=== PATIENT | female | born 1950 | race Two or more races ===

== ENCOUNTER 2016-08-24 16:09 | Emergency (ER) | payer OTHER ==
--- NOTE | 2016-08-24 16:45 | ER Document Report ---
ED Medical Screen (RME) - General Chief Complaint: Sore Throat Stated Complaint: SORE THROAT,VOMITING Time Seen by Provider: 08/24/16 16:27 Mode of Arrival: Wheelchair Information source: Patient, Relative Notes: -year-old female presents to ED for complaint of sore throat earache headache and vomiting for the last 5 days. She states that every time she eats anything she vomits is not able to keep anything down on her stomach today. She states she went to see her PCP and was prescribed amoxicillin and has just been sicker since then. She denies any cough or shortness of breath. No redness to her throat but she does have a lot of nasal drainage. A strep test has been cleaned and sent. I have greeted and performed a rapid initial assessment of this patient. A comprehensive ED assessment and evaluation of the patient, analysis of test results and completion of medical decision making process will be conducted by an additional ED providers. TRAVEL OUTSIDE OF THE [place] IN LAST 30 DAYS: No - Related Data Allergies/Adverse Reactions: No Known Allergies Allergy (Unverified 01/11/14 13:39) Past Medical History - Past Medical History Cardiac Medical History: Reports: Hx Hypertension - SEEING 01/12/14 Denies: Hx Heart Attack Pulmonary Medical History: Denies: Hx Asthma Neurological Medical History: Denies: Hx Cerebrovascular Accident, Hx Seizures Renal/ Medical History: Denies: Hx Peritoneal Dialysis GI Medical History: Denies: Hx Hepatitis, Hx Hiatal Hernia, Hx Ulcer Infectious Medical History: Denies: Hx Hepatitis Past Surgical History: Denies: Hx Mastectomy, Hx Open Heart Surgery, Hx Pacemaker Physical Exam - Vital signs Vitals: Temp Pulse Resp BP Pulse Ox 99.9 F 89 14 129/89 H 99 08/24/16 16:10 08/24/16 16:10 08/24/16 16:10 08/24/16 16:10 08/24/16 16:10 Course - Vital Signs Vital signs: Temp Pulse Resp BP Pulse Ox 99.9 F 89 14 129/89 H 99 08/24/16 16:10 08/24/16 16:10 08/24/16 16:10 08/24/16 16:10 08/24/16 16:10
[2016-08-24] MEDS ORDERED: ONDANSETRON 4 MG TAB.RAPDIS PO ONE (17:10)
[2016-08-24 17:51] LABS: ABSOLUTE LYMPHOCYTES (AUTO) 1.2 10^3/uL (0.5-4.7); ABSOLUTE MONOCYTES (AUTO) 0.7 10^3/uL (0.1-1.4); ABSOLUTE NEUT (AUTO) 5.1 10^3/uL (1.7-8.2); BASOPHILS % (AUTO) 0.1 % (0-2); EOSINOPHILS % (AUTO) 0.1 % (0-6); HEMATOCRIT 43.3 % (36.0-47.0); HEMOGLOBIN 14.2 g/dL (12.0-15.5); HGB HCT DIFFERENCE -0.7; LYMPHOCYTES % (AUTO) 16.7 % (13-45); MEAN CORPUSCULAR HEMOGLOBIN 27.3 pg (27.0-33.4); MEAN CORPUSCULAR HGB CONC 32.7 g/dL (32.0-36.0); MEAN CORPUSCULAR VOLUME 83 fl (80-97); MONOCYTES % (AUTO) 9.7 % (3-13); RED BLOOD COUNT 5.19 10^6/uL (3.72-5.28); RED CELL DISTRIBUTION WIDTH 13.4 % (11.5-14.0); SEGMENTED NEUTROPHILS % (AUTO) 73.4 % (42-78)
[2016-08-24 18:09] LABS: ALANINE AMINOTRANSFERASE 27 U/L (9-52); ALBUMIN 4.9 g/dL (3.5-5.0); ALKALINE PHOSPHATASE 107 U/L (38-126); ANION GAP 15 (5-19); ASPARTATE AMINO TRANSFERASE 20 U/L (14-36); BILIRUBIN,DIRECT 0.3 mg/dL (0.0-0.4); BILIRUBIN,TOTAL 0.6 mg/dL (0.2-1.3); BLOOD UREA NITROGEN 17 mg/dL (7-20); CALCIUM 11.2 mg/dL (8.4-10.2); CARBON DIOXIDE 28 mmol/L (22-30); CHLORIDE 86 mmol/L (98-107); CREATININE RESULT 0.74 mg/dL (0.52-1.25); GLUCOSE 149 mg/dL (75-110); POTASSIUM 4.2 mmol/L (3.6-5.0); SODIUM 129.1 mmol/L (137-145); TOTAL PROTEIN 8.7 g/dL (6.3-8.2)
[2016-08-24 18:43] LABS: APPEARANCE,URINE SLIGHTLY-CLOUDY; BILIRUBIN,URINE NEGATIVE (NEGATIVE); GLUCOSE, URINE NEGATIVE (NEGATIVE); KETONES,URINE NEGATIVE (NEGATIVE); LEUKOCYTE ESTERASE,URINE NEGATIVE (NEGATIVE); NITRITE,URINE NEGATIVE (NEGATIVE); PROTEIN,URINE 30 mg/dL (NEGATIVE); URINE SPECIFIC GRAVITY 1.021; UROBILINOGEN,URINE NEGATIVE mg/dL (<2.0)
[2016-08-24] MEDS ORDERED: ONDANSETRON ODT 4 MG TAB (6 TAB/DSPK) PO PRN (20:14)
--- NOTE | 2016-08-24 20:15 | ER Document Report ---
ED General - General Chief Complaint: Sore Throat Stated Complaint: SORE THROAT,VOMITING Time Seen by Provider: 08/24/16 16:27 Mode of Arrival: Wheelchair TRAVEL OUTSIDE OF THE [place] IN LAST 30 DAYS: No - HPI Patient complains to provider of: Vomiting sore throat ear pain Notes: Patient is non-Divehi speaking and translation performed by family at bedside. Family states patient having symptoms for the past few days when saw PCP started on amoxicillin has been taking amoxicillin however nausea vomiting as became worse. Denies any recent travel denies fevers at home denies any diarrhea. Upon my evaluation patient is lying comfortably with no signs or symptoms of any distress. Vital signs normal. - Related Data Allergies/Adverse Reactions: No Known Allergies Allergy (Unverified 01/11/14 13:39) Past Medical History - General Information source: Patient, Relative - Social History Smoking Status: Never Smoker Chew tobacco use (# tins/day): No Drug Abuse: None Family History: Reviewed & Not Pertinent Patient has suicidal ideation: No Patient has homicidal ideation: No - Past Medical History Cardiac Medical History: Reports: Hx Hypertension - SEEING 01/12/14 Denies: Hx Heart Attack Pulmonary Medical History: Denies: Hx Asthma Neurological Medical History: Denies: Hx Cerebrovascular Accident, Hx Seizures Renal/ Medical History: Denies: Hx Peritoneal Dialysis GI Medical History: Denies: Hx Hepatitis, Hx Hiatal Hernia, Hx Ulcer Infectious Medical History: Denies: Hx Hepatitis Surgical Hx: Negative Past Surgical History: Denies: Hx Mastectomy, Hx Open Heart Surgery, Hx Pacemaker Review of Systems - Review of Systems Constitutional: No symptoms reported EENT: Ear pain, Throat pain Cardiovascular: No symptoms reported Respiratory: No symptoms reported Gastrointestinal: Abdominal pain, Nausea, Vomiting Genitourinary: No symptoms reported Female Genitourinary: No symptoms reported Musculoskeletal: No symptoms reported Skin: No symptoms reported Hematologic/Lymphatic: No symptoms reported Neurological/Psychological: No symptoms reported -: Yes All other systems reviewed and negative Physical Exam - Vital signs Vitals: Temp Pulse Resp BP Pulse Ox 99.9 F 89 14 129/89 H 99 08/24/16 16:10 08/24/16 16:10 08/24/16 16:10 08/24/16 16:10 08/24/16 16:10 Interpretation: Normal - General General appearance: Appears well, Alert - HEENT Head: Normocephalic, Atraumatic Eyes: Normal Conjunctiva: Normal Cornea: Normal Extraocular movements intact: Yes Eyelashes: Normal Pupils: PERRL Ears: Normal External canal: Normal Tympanic membrane: Normal Sinus: Normal Nasal: Normal Mouth/Lips: Normal Pharynx: Normal Neck: Normal - Respiratory Respiratory status: No respiratory distress Chest status: Nontender Breath sounds: Normal Chest palpation: Normal - Cardiovascular Rhythm: Regular Heart sounds: Normal auscultation Murmur: No - Abdominal Inspection: Normal Distension: No distension Bowel sounds: Normal Tenderness: Nontender Organomegaly: No organomegaly - Back Back: Normal, Nontender - Extremities General upper extremity: Normal inspection, Nontender, Normal color, Normal ROM , Normal temperature General lower extremity: Normal inspection, Nontender, Normal color, Normal ROM , Normal temperature, Normal weight bearing. No: Leobardo's sign - Neurological Neuro grossly intact: Yes Cognition: Normal Orientation: AAOx4 Woodruff Coma Scale Eye Opening: Spontaneous Priscilla Coma Scale Verbal: Oriented Priscilla Coma Scale Motor: Obeys Commands Woodruff Coma Scale Total: 15 Speech: Normal Motor strength normal: LUE, RUE, LLE, RLE Sensory: Normal - Psychological Associated symptoms: Normal affect, Normal mood - Skin Skin Temperature: Warm Skin Moisture: Dry Skin Color: Normal Course - Re-evaluation Re-evalutation: 08/24/16 20:13 Lab was unrevealing critical pathology. Patient was able tolerate p.o. here well in the ER. We will send the patient home with nausea medication. Patient is to continue her antibiotics although more likely patient is experiencing a viral syndrome. The patient finished up her prescription patient to follow-up with her PCP - Vital Signs Vital signs: Temp Pulse Resp BP Pulse Ox 99.9 F 89 14 129/89 H 99 08/24/16 16:10 08/24/16 16:10 08/24/16 16:10 08/24/16 16:10 08/24/16 16:10 - Laboratory Result Diagrams: 08/24/16 17:20 08/24/16 17:20 Laboratory results interpreted by me: 08/24/16 08/24/16 17:20 17:28 Sodium 129.1 L Chloride 86 L Glucose 149 H Calcium 11.2 H Total Protein 8.7 H Urine Protein 30 H Discharge - Discharge Clinical Impression: Sore throat (viral) Ear pain Qualifiers: Laterality: unspecified laterality Qualified Code(s): H92.09 - Otalgia, unspecified ear Vomiting Qualifiers: Vomiting type: unspecified Vomiting Intractability: unspecified Nausea presence : unspecified Qualified Code(s): R11.10 - Vomiting, unspecified Condition: Good Disposition: HOME, SELF-CARE Instructions: Vomiting ([facility]), Sore Throat ([facility]) Additional Instructions: Laboratory studies today did not reveal any infectious etiology of her symptoms. More likely your symptoms worsen with the antibiotics. We will prescribe the nausea medication and giving nausea medication to take at home. Please take this as prescribed follow-up with your primary care physician. Prescriptions: Ondansetron [Zofran Odt 4 mg Tablet] 1 - 2 tab PO Q4H PRN #15 tab.rapdis PRN Reason: For Nausea/Vomiting Referrals: ROSEY PUCKETT MD [Primary Care Provider] - Follow up in 3-5 days
[2016-08-24] MEDS ORDERED: ACETAMINOPHEN 325 MG TABLET PO ONE ×2 (20:23→20:32)
[2016-08-24] MEDS ORDERED: ACETAMINOPHEN 325 MG TABLET ONE (20:23)
[2016-08-24 20:48] VITALS: BP 111/67
== END 2016-08-24 20:49 | disposition home or self-care (01) ==
LOC: ER 16:09
DX: J02.8 Acute pharyngitis due to other specified organisms (principal); B97.89 Other viral agents as the cause of diseases classified elsewhere; R11.2 Nausea with vomiting, unspecified; I10 Essential (primary) hypertension; H92.09 Otalgia, unspecified ear
CPT/HCPCS: 99283; 36415; 87070; 87880; 85025; 80053; 81001; S0119

== ENCOUNTER 2016-09-01 15:01 | Emergency (ER) | payer OTHER ==
[2016-09-01] MEDS ORDERED: NORMAL SALINE 500 ML IV PRN (15:23)
--- NOTE | 2016-09-01 15:27 | ER Document Report ---
ED Medical Screen (RME) - General Chief Complaint: Headache Stated Complaint: HEAD,EYE PAIN Time Seen by Provider: 09/01/16 15:21 Mode of Arrival: Wheelchair Information source: Relative Notes: This is a 65-year-old Citizen Of [place] speaking woman from [facility] then brought into the emergency room with a right-sided headache associated with right hearing loss for the past 2 weeks. Patient has a history of dyslipidemia, glaucoma, borderline hypertension and arthritis. The patient's son states she has never really suffered from significant headaches in the past. Patient also has been having generalized weakness and decreased appetite. TRAVEL OUTSIDE OF THE [place] IN LAST 30 DAYS: No - Related Data Allergies/Adverse Reactions: No Known Allergies Allergy (Verified 09/01/16 15:03) Past Medical History - Past Medical History Cardiac Medical History: Reports: Hx Hypertension - SEEING 01/12/14 Denies: Hx Heart Attack Pulmonary Medical History: Denies: Hx Asthma Neurological Medical History: Denies: Hx Cerebrovascular Accident, Hx Seizures Renal/ Medical History: Denies: Hx Peritoneal Dialysis GI Medical History: Denies: Hx Hepatitis, Hx Hiatal Hernia, Hx Ulcer Infectious Medical History: Denies: Hx Hepatitis Past Surgical History: Denies: Hx Mastectomy, Hx Open Heart Surgery, Hx Pacemaker Physical Exam - Vital signs Vitals: Temp Pulse Resp BP Pulse Ox 99.6 F 96 16 144/95 H 98 09/01/16 15:03 09/01/16 15:03 09/01/16 15:03 09/01/16 15:03 09/01/16 15:03 Course - Vital Signs Vital signs: Temp Pulse Resp BP Pulse Ox 99.6 F 96 16 144/95 H 98 09/01/16 15:03 09/01/16 15:03 09/01/16 15:03 09/01/16 15:03 09/01/16 15:03
[2016-09-01 15:51] LABS: ABSOLUTE BASOPHILS # (AUTO) 0.1 10^3/uL (0.0-0.2); ABSOLUTE EOSINOPHILS # (AUTO) 0.2 10^3/uL (0.0-0.6); ABSOLUTE LYMPHOCYTES (AUTO) 2.9 10^3/uL (0.5-4.7); ABSOLUTE MONOCYTES (AUTO) 0.8 10^3/uL (0.1-1.4); ABSOLUTE NEUT (AUTO) 4.9 10^3/uL (1.7-8.2); BASOPHILS % (AUTO) 0.6 % (0-2); EOSINOPHILS % (AUTO) 1.8 % (0-6); HEMATOCRIT 40.9 % (36.0-47.0); HEMOGLOBIN 13.1 g/dL (12.0-15.5); HGB HCT DIFFERENCE -1.6; LYMPHOCYTES % (AUTO) 32.5 % (13-45); MEAN CORPUSCULAR HGB CONC 32.1 g/dL (32.0-36.0); MEAN CORPUSCULAR VOLUME 84 fl (80-97); MONOCYTES % (AUTO) 9.4 % (3-13); RED BLOOD COUNT 4.86 10^6/uL (3.72-5.28); RED CELL DISTRIBUTION WIDTH 13.2 % (11.5-14.0); SEGMENTED NEUTROPHILS % (AUTO) 55.7 % (42-78); WHITE BLOOD COUNT 8.8 10^3/uL (4.0-10.5)
--- NOTE | 2016-09-01 15:58 | ER Document Report ---
ED Headache - General Mode of Arrival: Wheelchair Information source: Patient TRAVEL OUTSIDE OF THE [place] IN LAST 30 DAYS: No - HPI Patient complains to provider of: Headache, Facial pain Patient reports: No: Frequent migraines, Hx chronic headaches Onset: Other - Refer to HPI notes <LAURA GILLETTE - Last Filed: 09/01/16 18:24> <LASHUANYUE JAMES - Last Filed: 09/01/16 22:29> - General Chief Complaint: Headache Stated Complaint: HEAD,EYE PAIN Time Seen by Provider: 09/01/16 15:21 Notes: Patient is a 65-year-old English speaking female from [facility] presenting to the emergency department with a right-sided headache x 2 weeks. Patient also has some hearing loss in her right ear. Patient's son is translating for the patient and he states the patient does not have a history of headaches. Patient also complains of some generalized weakness and lack of appetite or fluid intake. Patient was vomiting earlier this week and her son states the vomiting has stopped but the patient has been scared to eat or drink. Patient denies any sneezing, cough or congestion. Patient has a history of dyslipidemia, glaucoma, borderline hypertension and arthritis. Patient has no known drug allergies. ( LAURA GILLETTE) - Related Data Allergies/Adverse Reactions: No Known Allergies Allergy (Verified 09/01/16 15:03) Past Medical History - General Information source: Relative - Social History Smoking Status: Never Smoker Cigarette use (# per day): No Chew tobacco use (# tins/day): No Frequency of alcohol use: None Drug Abuse: None Family History: None Patient has suicidal ideation: No Patient has homicidal ideation: No - Past Medical History Cardiac Medical History: Reports: Hx Hypertension Surgical Hx: Negative <LAURA GILLETTE - Last Filed: 09/01/16 18:24> Review of Systems - Review of Systems Constitutional: No symptoms reported EENT: See HPI, Ear pain Cardiovascular: No symptoms reported Respiratory: No symptoms reported Gastrointestinal: See HPI, Nausea, Poor appetite, Poor fluid intake Genitourinary: No symptoms reported Female Genitourinary: No symptoms reported Musculoskeletal: No symptoms reported Skin: No symptoms reported Hematologic/Lymphatic: No symptoms reported Neurological/Psychological: See HPI, Headaches -: Yes All other systems reviewed and negative <LAURA GILLETTE - Last Filed: 09/01/16 18:24> Physical Exam - Vital signs Interpretation: Normal <LAURA GILLETTE - Last Filed: 09/01/16 18:24> <YUE WILKS - Last Filed: 09/01/16 22:29> - Vital signs Vitals: Temp Pulse Resp BP Pulse Ox 99.6 F 96 16 144/95 H 98 09/01/16 15:03 09/01/16 15:03 09/01/16 15:03 09/01/16 15:03 09/01/16 15:03 - Notes Notes: GENERAL: Alert, interacts well. No acute distress. HEAD: Normocephalic, atraumatic. Over the right forehead/face. EYES: Appear normal. Pupils equal, round, and reactive to light. ENT: Moist mucus membranes, tongue midline. Cerumen impaction of the right ear. Tenderness to palpation NECK: Full range of motion. Supple. Trachea midline. LUNGS: Clear to auscultation bilaterally, no wheezes, rales, or rhonchi. No respiratory distress. HEART: Regular rate and rhythm. No murmurs, gallops, or rubs. ABDOMEN: Soft, non-tender. Non-distended. Normal bowel sounds. EXTREMITIES: Moves all 4 extremities spontaneously. Normal strength. No edema. NEUROLOGICAL: Alert and oriented x3. Normal speech, English speaking. No focal neurological deficits. GSC 15. PSYCH: Normal affect, normal mood. SKIN: Warm, dry, normal turgor. No rashes or lesions noted. (LAURA GILLETTE) Course - Laboratory Result Diagrams: 09/01/16 15:35 09/01/16 15:35 <LAURA GILLETTE - Last Filed: 09/01/16 18:24> - Laboratory Result Diagrams: 09/01/16 15:35 09/01/16 15:35 <YUE WILKS - Last Filed: 09/01/16 22:29> - Re-evaluation Re-evalutation: 09/01/16 19:32 Patient feels better after cerumen impaction removed with irrigation. She no longer feels dizzy. Patient states that her headache is improved with fluids and medication. Patient is still complaining of a burning sensation in her right ear and right face. Patient apparently had a vesicular rash on her ear per her family last week. He states that it now appears crusted over. Patient could very possibly have postherpetic neuralgia from shingles. Patient will be discharged home with prednisone and pain medication. Stable for discharge. Understands and agrees with plan. (YUE WILKS) - Vital Signs Vital signs: Temp Pulse Resp BP Pulse Ox 98.2 F 92 13 173/111 H 97 09/01/16 19:32 09/01/16 19:32 09/01/16 19:32 09/01/16 19:40 09/01/16 19:32 - Laboratory Laboratory results interpreted by me: 09/01/16 09/01/16 09/01/16 15:35 15:35 16:40 ESR 47 H Sodium 133.6 L Potassium 5.6 H Chloride 96 L Calcium 11.5 H Total Protein 8.3 H Ur Leukocyte Esterase MODERATE H Discharge <LAURA GILLETTE - Last Filed: 09/01/16 18:24> <YUE WILKS - Last Filed: 09/01/16 22:29> - Discharge Clinical Impression: Impacted cerumen of right ear, Post herpetic neuralgia Headache Qualifiers: Headache type: unspecified Headache chronicity pattern: acute headache Intractability: not intractable Qualified Code(s): R51 - Headache Condition: Stable Disposition: HOME, SELF-CARE Instructions: Shingles ([facility]), Cerumen Impaction ([facility]), Headache ([facility]), Oral Narcotic Medication ([facility]) Prescriptions: Oxycodone HCl/Acetaminophen [Percocet 5-325 mg Tablet] 1 tab PO Q6HP PRN #15 tablet PRN Reason: Prednisone 20 mg PO DAILY #4 tablet Referrals: ROSEY PUCKETT MD [Primary Care Provider] - Follow up in 3-5 days Scribe Attestation: 09/01/16 22:29 I personally performed the services described in the documentation, reviewed and edited the documentation which was dictated to the scribe in my presence, and it accurately records my words and actions. (YUE WILKS) Scribe Documentation - Scribe Written by Scribe:: Christiano De La Cruz 09/01/2016 18:07 acting as scribe for :: Lashaun <LAURA GILLETTE - Last Filed: 09/01/16 18:24>
--- NOTE | 2016-09-01 16:01 | RADIOLOGY REPORT (SQ) ---
EXAM DESCRIPTION: CHEST PA/LAT COMPLETED DATE/TIME: 09/01/2016 3:47 pm REASON FOR STUDY: weakness COMPARISON: None. EXAM PARAMETERS: NUMBER OF VIEWS: two views TECHNIQUE: Digital Frontal and Lateral radiographic views of the chest acquired. RADIATION DOSE: NA LIMITATIONS: none FINDINGS: LUNGS AND PLEURA: No opacities, masses or pneumothorax. No pleural effusion. MEDIASTINUM AND HILAR STRUCTURES: No masses or contour abnormalities. HEART AND VASCULAR STRUCTURES: Heart normal size. No evidence for failure. BONES: No acute findings. HARDWARE: None in the chest. OTHER: No other significant finding. IMPRESSION: NO SIGNIFICANT RADIOGRAPHIC FINDING IN THE CHEST. TECHNICAL DOCUMENTATION: JOB ID: [id number] [employer]- All Rights Reserved
[2016-09-01 16:08] LABS: ALANINE AMINOTRANSFERASE 38 U/L (9-52); ALBUMIN 4.5 g/dL (3.5-5.0); ALKALINE PHOSPHATASE 93 U/L (38-126); ANION GAP 13 (5-19); ASPARTATE AMINO TRANSFERASE 22 U/L (14-36); BILIRUBIN,DIRECT 0.3 mg/dL (0.0-0.4); BILIRUBIN,TOTAL 0.5 mg/dL (0.2-1.3); BLOOD UREA NITROGEN 15 mg/dL (7-20); CALCIUM 11.5 mg/dL (8.4-10.2); CARBON DIOXIDE 25 mmol/L (22-30); CHLORIDE 96 mmol/L (98-107); CREATININE RESULT 0.78 mg/dL (0.52-1.25); GLUCOSE 106 mg/dL (75-110); POTASSIUM 5.6 mmol/L (3.6-5.0); SODIUM 133.6 mmol/L (137-145); TOTAL PROTEIN 8.3 g/dL (6.3-8.2)
[2016-09-01] MEDS ORDERED: NORMAL SALINE 500 ML IV ONE (16:25)
[2016-09-01] MEDS ORDERED: METOCLOPRAMIDE HCL INJ/PF 10 MG/2 ML SDV IV ONE (16:27)
[2016-09-01] MEDS ORDERED: DIPHENHYDRAMINE HCL 50 MG/ML VIAL IV ONE (16:27)
[2016-09-01 16:33] LABS: ERYTHROCYTE SEDIMENTATION RATE 47 mm/hr (0-30)
--- NOTE | 2016-09-01 16:33 | RADIOLOGY REPORT (SQ) ---
EXAM DESCRIPTION: CT HEAD WITHOUT COMPLETED DATE/TIME: 09/01/2016 4:23 pm REASON FOR STUDY: right sided headache COMPARISON: None. TECHNIQUE: Axial images acquired through the brain without intravenous contrast. Images reviewed wi th bone, brain and subdural windows. Images stored on PACS. All CT scanners at this facility use dose modulation, iterative reconstruction, and/or weight based d osing when appropriate to reduce radiation dose to as low as reasonably achievable (ALARA). [facility]: Dose Right [facility]: CareDose [facility]: Dose Right [facility]: Teradose 4D [facility]: Primus [employer] RADIATION DOSE: 64.61 mGy. LIMITATIONS: None. FINDINGS: VENTRICLES: Normal contour and configuration. CEREBRUM: No masses. No hemorrhage. No midline shift. Areas of low density in the white matter mos t likely due to chronic micro-vascular ischemic change. No evidence for acute infarction. CEREBELLUM: No masses. No hemorrhage. No alteration of density. No evidence for acute infarction. EXTRAAXIAL SPACES: Mild age-related involutional change. No fluid collections. No masses. ORBITS AND GLOBE: No intra- or extraconal masses. Normal contour of globe without masses. CALVARIUM: No fracture. PARANASAL SINUSES: No fluid or mucosal thickening. SOFT TISSUES: No mass or hematoma. OTHER: Incidental note is made of atherosclerotic vascular calcifications within the cavernous segmen ts of the internal carotid arteries bilaterally. IMPRESSION: VERY MILD CHRONIC CHANGES OF MICROVASCULAR ISCHEMIA. NO ACUTE PROCESS. TECHNICAL DOCUMENTATION: JOB ID: [id number] Quality ID # [id number]: Final reports with documentation of one or more dose reduction techniques (e.g., Au tomated exposure control, adjustment of the mA and/or kV according to patient size, use of iterative reconstruction technique) 2010 [employer]- All Rights Reserved
[2016-09-01] MEDS ORDERED: CARBAMIDE PEROXIDE 6.5% OTIC SOLN 15 ML AU ONE (17:02)
[2016-09-01 17:08] LABS: APPEARANCE,URINE CLEAR; BILIRUBIN,URINE NEGATIVE (NEGATIVE); GLUCOSE, URINE NEGATIVE (NEGATIVE); KETONES,URINE NEGATIVE (NEGATIVE); LEUKOCYTE ESTERASE,URINE MODERATE (NEGATIVE); NITRITE,URINE NEGATIVE (NEGATIVE); PROTEIN,URINE NEGATIVE (NEGATIVE); URINE SPECIFIC GRAVITY 1.005; UROBILINOGEN,URINE NEGATIVE mg/dL (<2.0)
[2016-09-01] MEDS ORDERED: HYDROCODONE/ACETAMINOPHEN 5-325 MG 6 TAB/DSPK PO PRN (19:22)
[2016-09-01 19:43] VITALS: BP 173/111
== END 2016-09-01 20:06 | disposition home or self-care (01) ==
LOC: ER 15:01
DX: B02.29 Other postherpetic nervous system involvement (principal); H61.21 Impacted cerumen, right ear; R51 Headache; R53.1 Weakness; R63.0 Anorexia; R11.0 Nausea
CPT/HCPCS: 99284; 96361; 96374; 96375; 36415; 85025; 85652; 80053; 81001; 84484; 71020; 70450; J1200; J2765; J7040; J3490

== ENCOUNTER → 2017-06-26 | Outpatient (CLI) | payer OTHER ==
--- NOTE | 2017-06-26 15:44 | RADIOLOGY REPORT (SQ) ---
EXAM DESCRIPTION: UGI SERIES COMPLETED DATE/TIME: 06/26/2017 8:30 am REASON FOR STUDY: AND BASW DYSPHAGIA (R13.10) R13.10 DYSPHAGIA, UNSPECIFIED COMPARISON: None. TECHNIQUE: Under fluoroscopic guidance, patient ingested effervescent granules followed by thick and thin barium. Fluoroscopic spot images and routine radiographic images acquired and stored on PACS. 12 MM BARIUM TABLET GIVEN: No Not performed LIMITATIONS: None. FLUOROSCOPY TIME: FLUORO TIME: 1 minutes 59 seconds 39 series of digital images saved to PACS. FINDINGS: NEUROMUSCULAR COORDINATION OF SWALLOW: Normal. No aspiration. ESOPHAGEAL MOTILITY: Normal peristalsis. No esophageal spasm. ESOPHAGEAL MUCOSA: Normal mucosa without masses or ulceration. GASTRO-ESOPHAGEAL JUNCTION: No hiatal hernia or reflux. STOMACH: Normal without masses or ulcerations. GASTRIC OUTLET: No delay in emptying. Normal pylorus. DUODENAL BULB and DUODENUM: There are thickened folds in the duodenum bulb and 2nd portion of the duo denum with multiple ericka thorn or aphthous ulcers present. This is worrisome for inflammatory bowel disease/ Crohn's disease. Bile reflux, nonsteroidal anti-inflammatories or H pylori infection could cause this appearance. Normal duodenum all distention.No extrinsic masses or malrotation. PROXIMAL SMALL BOWEL: Mucosa normal. No extrinsic masses or malrotation. NON-GI TRACT STRUCTURES: No significant finding. OTHER: No other significant finding. IMPRESSION: Duodenitis with multiple small erosions or ulcerations. COMMENT: Quality ID 145: Final reports for procedures using fluoroscopy that document radiation exp osure indices, or exposure time and number of fluorographic images (if radiation exposure indices are not available) TECHNICAL DOCUMENTATION: JOB ID: [id number] [employer]- All Rights Reserved Reading location - IP/workstation name: [email or web address]
== END ==
LOC: RAD 07:41
PROVIDERS: ATTEND Family Medicine
DX: R13.10 Dysphagia, unspecified (principal)
CPT/HCPCS: 74247

== ENCOUNTER → 2018-04-03 | Outpatient (CLI) | payer MEDICAID ==
--- NOTE | 2018-04-04 16:08 | WOMENS IMAGING REPORT ---
EXAM DESCRIPTION: BILAT SCREENING MAMMO W/CAD COMPLETED DATE/TIME: 04/03/2018 1:55 pm REASON FOR STUDY: ROUTINE BILATERAL SCREENING;Z12.31 Z12.31 ENCNTR SCREEN MAMMOGRAM FOR MALIGNANT N EOPLASM OF TREY COMPARISON: 2009 TECHNIQUE: Standard craniocaudal and mediolateral oblique views of each breast recorded using [employer] l acquisition. LIMITATIONS: None. FINDINGS: No masses, calcifications or architectural distortion. No areas of suspicion. Read with the assistance of CAD. .[facility] - R2 [employer]ova Version 1.3 .[facility] - R2 Cenova Version 2.1 .[facility] - R2 Cenova Version 2.4 .[facility] - R2 Cenova Version 2.4 .[facility] - R2 [employer] Estimator Version 9.2 IMPRESSION: NORMAL MAMMOGRAM. BIRADS 1. BREAST DENSITY: b. There are scattered areas of fibroglandular density. BIRAD: 1 NEGATIVE RECOMMENDATION: ROUTINE SCREENING COMMENT: The patient has been notified of the results by letter per SA requirements. Additional no tification policies are in place for contacting patient with suspicious or incomplete findings. Quality ID #[id number]: The [employer] recommends an annual screening mammogram for women aged 40 years or over. This facility utilizes a reminder system to ensure that all patients receive reminder letters, and/or direct phone calls for appointments. This includes reminders for routine scr eening mammograms, diagnostic mammograms, or other Breast Imaging Interventions when appropriate. Th is patient will be placed in the appropriate reminder system. The [employer] (ACR) has developed recommendations for screening MRI of the breast s in certain patient populations, to be used in conjunction with mammography. Breast MRI surveillanc e may be appropriate for women with more than 20% lifetime risk of developing breast cancer as deter mined by genetic testing, significant family history of the disease, or history of mantle radiation f or Hodgkins Disease. ACR Practice Guidelines 2008. TECHNICAL DOCUMENTATION: FINDING NUMBER: (1) ASSESSMENT: (1) JOB ID: [id number] [employer]- All Rights Reserved Reading location - IP/workstation name: [email or web address]
== END ==
LOC: WI 12:12
PROVIDERS: ATTEND Family Medicine
DX: Z12.31 Encounter for screening mammogram for malignant neoplasm of breast (principal)
CPT/HCPCS: 77067

== ENCOUNTER → 2018-08-21 | Outpatient (CLI) | payer MEDICAID ==
--- NOTE | 2018-08-21 15:17 | RADIOLOGY REPORT (SQ) ---
EXAM DESCRIPTION: LUMBAR SPINE COMPLETE COMPLETED DATE/TIME: 08/21/2018 12:52 pm REASON FOR STUDY: LOW BACK PAIN M54.5 LOW BACK PAIN COMPARISON: MRI lumbar spine 05/28/2015 NUMBER OF VIEWS: Five views including obliques. TECHNIQUE: AP, lateral, oblique, and sacral radiographic images acquired of the lumbar spine. LIMITATIONS: None. FINDINGS: MINERALIZATION: Normal. SEGMENTATION: Normal. No transitional anatomy. ALIGNMENT: Grade 1 anterolisthesis of L4 over L5 related to bilateral facet arthropathy VERTEBRAE: Maintained height. No fracture or worrisome bone lesion. DISCS: High-grade disc space loss of height at L4-5 POSTERIOR ELEMENTS: Bulky bilateral facet arthropathy from L3-4 through L5-S1. HARDWARE: None in the spine. PARASPINAL SOFT TISSUES: Normal. PELVIS: SI joints unremarkable OTHER: No other significant finding. IMPRESSION: Lower lumbar facet arthropathy and disc space loss of height. TECHNICAL DOCUMENTATION: JOB ID: [id number] [employer]- All Rights Reserved Reading location - IP/workstation name: [email or web address]
== END ==
LOC: OD 12:31
PROVIDERS: ATTEND Family Medicine
DX: M54.5 Low back pain (principal)
CPT/HCPCS: 72110